=== PATIENT | female | born 1950 | race Caucasian/White ===

== ENCOUNTER 2022-09-05 21:52 | Emergency (ER) | payer MEDICARE ==
[~2022-09-05] VITALS: Ht 154.9 cm; Wt 58.7 kg
[2022-09-05] MEDS ORDERED: FUROSEMIDE 100MG/10ML VIAL IV ONE (22:05)
[2022-09-05] MEDS ORDERED: MORPHINE 2 MG/ML 1ML VIAL IV ONE (22:05)
[2022-09-05 22:14] VITALS: TEMP 97.1
[2022-09-05 22:43] LABS: BASO # 0.1 10^3/uL (0.0-0.2); BASO % 0.6 % (0.0-1.0); EOS % 0.1 % (0.0-3.0); HEMATOCRIT 40.5 % (36.0-47.0); HEMOGLOBIN 12.8 g/dl (12.0-15.5); LYMPH # 1.7 10^3/uL (1.5-5.0); LYMPH % 8.9 % (24.0-44.0); MEAN CORPUSCULAR HEMOGLOBIN 32.9 pg (27.0-33.0); MEAN CORPUSCULAR HGB CONC 31.6 g/dl (32.0-36.5); MEAN CORPUSCULAR VOLUME 104.1 fl (80.0-96.0); MONO # 1.1 10^3/uL (0.0-0.8); MONO % 5.8 % (2.0-8.0); NEUTROPHILS # 15.7 10^3/uL (1.5-8.5); NEUTROPHILS % 83.5 % (36.0-66.0); PLATELET COUNT, AUTOMATED 262 10^3/uL (150-450); RED BLOOD COUNT 3.89 10^6/uL (4.00-5.40); WHITE BLOOD COUNT 18.8 10^3/uL (4.0-10.0)
[2022-09-05 23:03] LABS: INR 1.57; PROTHROMBIN TIME 19.1 SECONDS (12.5-14.5)
[2022-09-05 23:09] LABS: CALCIUM LEVEL 8.7 MG/DL (8.3-10.6); CREATININE FOR GFR 2.05 MG/DL (0.55-1.30); GLOMERULAR FILTRATION RATE 25.5 (>39); POTASSIUM SERUM 4.8 MMOL/L (3.5-5.1)
[2022-09-05] MEDS ORDERED: DOXYCYCLINE HYCLATE 100MG TABLET PO ONE (23:40)
[2022-09-05] MEDS ORDERED: cefTRIAXone SOD 1 GM in D5W MINI-BAG PLUS 50 ML IV ONE (23:40)
[2022-09-05] MEDS: IPRATROPIUM 0.5MG/ALBUTEROL 2.5MG INH SOL UD 3ML (DUONEB) NEB SCH ×2 (23:45→23:49)
[2022-09-06] MEDS: IPRATROPIUM 0.5MG/ALBUTEROL 2.5MG INH SOL UD 3ML (DUONEB) NEB SCH (00:23)
[2022-09-06 02:47] LABS: MB/CK RELATIVE INDEX 6.45 (< OR =4)
[2022-09-06] MEDS ORDERED: IPRATROPIUM 0.5MG/ALBUTEROL 2.5MG INH SOL UD 3ML (DUONEB) NEB ONE ×2 (03:15→07:15)
[2022-09-06] MEDS ORDERED: HEPARIN DRIP 25,000 UNITS in IV 1 EA IV SCH (04:00)
[2022-09-06] MEDS ORDERED: XANA0.5T PO (04:33)
[2022-09-06] MEDS ORDERED: ALPRAZolam 0.5 MG TAB PO ONE (04:35)
[2022-09-06] MEDS ORDERED: CO Q200C10 PO (05:23)
[2022-09-06] MEDS ORDERED: ECOT81TA5 PO (05:23)
[2022-09-06] MEDS ORDERED: ATOR1TAB21 PO (05:23)
[2022-09-06] MEDS ORDERED: POTA-151 PO (05:23)
[2022-09-06] MEDS ORDERED: LASI40TA9 PO (05:23)
[2022-09-06] MEDS ORDERED: EZET10TA21 PO (05:23)
[2022-09-06] MEDS ORDERED: METO50TA7 PO (05:23)
[2022-09-06] MEDS ORDERED: MONT10TA97 PO (05:23)
[2022-09-06] MEDS ORDERED: TREL1AER PO (05:23)
[2022-09-06] MEDS ORDERED: VENTAER INH (05:23)
[2022-09-06] MEDS ORDERED: IPRA0.00 INH (05:23)
[2022-09-06] MEDS ORDERED: NITR0.4S14 SL (05:23)
[2022-09-06] MEDS ORDERED: RANO500T2 PO (05:23)
[2022-09-06] MEDS ORDERED: SPIR-10 PO (05:23)
[2022-09-06] MEDS ORDERED: LORazepam 2 MG/ML 1ML VIAL IV STA (07:03)
[2022-09-06 07:45] VITALS: BP 134/65
[2022-09-06 08:00] VITALS: O2SAT 96
== END 2022-09-06 08:14 | disposition short-term general hospital (02) ==
LOC: M ED 21:52 → EDBD 21:52 → M ED 09-06 08:14
DX: I24.9 Acute ischemic heart disease, unspecified (principal); I50.20 Unspecified systolic (congestive) heart failure; J18.9 Pneumonia, unspecified organism; Z88.1 Allergy status to other antibiotic agents; Z79.51 Long term (current) use of inhaled steroids; Z79.899 Other long term (current) drug therapy; Z79.82 Long term (current) use of aspirin
CPT/HCPCS: 71045; 80048; 82550; 82553; 83605; 83880; 84484; 85025; 85610; 85730; 87040; 87486; 87581; 87633; 87798; 93005; 93041; 94640; 94760; 96365; 96366; 96367; 96375; 99285; J0696; J1940; J2060